=== PATIENT | female | born 1965 | race Caucasian/White ===

== ENCOUNTER 2017-10-14 02:43 | Emergency (ER) | payer OTHER ==
[~2017-10-14] VITALS: Ht 162.6 cm; Wt 81.7 kg
[2017-10-14] MEDS ORDERED: HYDROcodone/APAP 5/325 TABLET PO STA (03:20)
[2017-10-14] MEDS ORDERED: DIAZEPAM 5 MG TABLET PO ONE (03:30)
[2017-10-14] MEDS ORDERED: KETOROLAC 60 MG/2 ML IM ONE (03:30)
[2017-10-14] MEDS ORDERED: KETOROLAC 30 MG/1 ML ONE (03:37)
[2017-10-14] MEDS ORDERED: HYDROcodone/APAP 5/325 TABLET ONE (03:37)
[2017-10-14] MEDS ORDERED: DIAZEPAM 5 MG TABLET ONE (03:38)
[2017-10-14 04:29] VITALS: BP 145/74
== END 2017-10-14 05:19 | disposition home or self-care (01) ==
LOC: ED 05:09
DX: S16.1XXA Strain of muscle, fascia and tendon at neck level, initial encounter (principal); M54.12 Radiculopathy, cervical region; X58.XXXA Exposure to other specified factors, initial encounter; Y93.89 Activity, other specified; Y92.89 Other specified places as the place of occurrence of the external cause; Y99.8 Other external cause status
CPT/HCPCS: 72125; 96372; 99284; J1885